=== PATIENT | female | born 1935 | race Caucasian/White ===

== ENCOUNTER 2021-09-19 21:22 | Inpatient (IN) | payer MEDICARE, BC, SELFPAY ==
[2021-09-19 21:45] VITALS: BP 130/62; PULSE 68; RESP 17; TEMP 36.5; O2SAT 97
[2021-09-19 21:54] LABS: Glucose, Whole Blood 101 mg/dL (60-115)
[2021-09-19] MEDS: Atorvastatin Calcium 20 MG TABLET PO (23:10)
[2021-09-19] MEDS: busPIRone HCl 5 MG TABLET PO (23:10)
[2021-09-19] MEDS: metFORMIN HCl 500 MG TABLET PO (23:10)
[2021-09-19 23:25] VITALS: BMI 18.7
--- NOTE | 2021-09-20 04:18 | PC.ADMIT ---
85 year old female patient admitted from [facility] at 2135 with a diagnosis of depression. Pt. was referred by N. This is the patient's first admission to S1. Nurse to nurse done prior to admission. Pt. is on 15 minute safety checks. Pt. signed a CV. Pt. is A&Ox4. She reported experiencing SI prior to admission due to loneliness. Pt. has experienced traumatic events in her life as well as multiple diagnoses of cancer including breast cancer, s/p left mastectomy, and most recently esophageal cancer, s/p surgery. Pt. denies SI on the unit, no plan. Pt. denies AH/VH/HI. Medical history also includes: GERD, hypertension, hyperlipidemia, s/p hysterectomy, COPD. Provider notified and admission orders obtained.
[2021-09-20 06:00] VITALS: BP 156/75; PULSE 67; RESP 16; TEMP 36.6; O2SAT 97
[2021-09-20] MEDS: Levothyroxine Sodium 50 MCG TABLET PO (06:13)
[2021-09-20] MEDS: Omeprazole 20 MG CAPSULE.DR PO ×2 (06:13→15:29)
[2021-09-20 08:30] LABS: Alanine Aminotransferase 15 U/L (0-31); Albumin Level 3.9 g/dL (3.5-5.0); Alkaline Phosphatase 64 U/L (39-117); Anion Gap 13 (12-20); Aspartate Amino Transferase 22 U/L (5-31); Bilirubin Total 0.5 mg/dL (0.0-1.0); Blood Urea Nitrogen 21 mg/dL (9-16); Calcium 9.3 mg/dL (8.4-10.2); Carbon Dioxide 27 mmol/L (22-29); Chloride 102 mmol/L (96-108); Cholesterol 124 mg/dL; Creatinine Clr Calc Pharmacy 24.6; Estimated Glomerular Filt Rate 36; Glucose Fasting 95 mg/dL (60-99); HDL Cholesterol 43 mg/dL; LDL Cholesterol Calculated 63 mg/dl; Potassium 4.8 mmol/L (3.3-5.1); Sodium 137 mmol/L (135-145); Total Protein 5.8 g/dL (6.5-8.0); Triglycerides 91 mg/dL
[2021-09-20] MEDS: metFORMIN HCl 500 MG TABLET PO (08:42)
[2021-09-20] MEDS: Losartan Potassium 25 MG TABLET PO (08:42)
[2021-09-20] MEDS: Sertraline HCL 100 MG TABLET PO (08:42)
[2021-09-20] MEDS: busPIRone HCl 5 MG TABLET PO (08:42)
[2021-09-20 08:51] LABS: Free T4 (Free Thyroxine) 0.95 ng/dL (0.71-1.85); Thyroid Stimulating Hormone 2.72 uIU/mL (0.32-4.0)
[2021-09-20] MEDS: polyethylene glycoL 3350 17 GM POWD.PACK PO (12:35)
--- NOTE | 2021-09-20 13:31 | P.HPPS_ITS ---
HPI Date of Service: 09/20/21 Chief Complaint: depression Sources of Information: patient interviewed, chart reviewed and crisis/core team assessment reviewed HPI Subjective Notes: Watts Warning and Conditional Voluntary Narrative: Mrs. Rouse is a 85 year-old woman with hx of MDD, brought by elliott to [facility] ED due to increase depression, passive suicidal ideation. This is her first inpatient psychiatric admission. Utox is negative. On the unit, Mrs. Ruose reports for the past 3 weeks she has been feeling more anxious, more depressed. She does not want to be on her own (lives in her own apartment). She states anxiety is debilitating to the point that she states I don't want to live like this. She endorses passive suicidal ideation but denies any plan or intent to hurt herself. She reports she has had cancer 3 times. She states she lost about 10 Lbs, recently went back to oncologist and is worried that cancer may have return. She denies hx of VH/AH. She has been on sertraline for several years. no hx of suicide attempts. Past Psychiatric History: Inpatient: none OP: PCP prescribing sertraline, but no OP psych services Past trials: sertraline Suicide attempts: none Medical Evaluation Reviewed: Yes PMFSH Family History: father of suicide Social History: Pt has one daughter and son. of suicide several years ago. Son killed himself while process of divorce and killed his . Substance History: none Trauma History: several tragic losses in her life. Diagnostics Vital Signs (24Hr): Vital Signs - 24 hr 09/19/21 21:45 09/20/21 06:00 Temperature 97.7 F 97.9 F Pulse Rate 68 67 Respiratory Rate 17 16 Blood Pressure 130/62 156/75 H Pulse Oximetry 97 97 Oxygen Delivery Method Room Air Room Air BMI result Body Mass Index 18.7 Labs Results: 09/20/21 15:18 09/20/21 07:14 Labs: Laboratory Results - last 48 hr 09/19/21 09/20/21 21:47 07:14 Sodium 137 Potassium 4.8 Chloride 102 Carbon Dioxide 27 Anion Gap 13 BUN 21 H Creatinine 1.39 Estim Creat Clear Calc 24.6 Estimated GFR 36 POC Glucose 101 Fasting Glucose 95 Calcium 9.3 Total Bilirubin 0.5 AST 22 ALT 15 Alkaline Phosphatase 64 Total Protein 5.8 L Albumin 3.9 Triglycerides 91 Cholesterol 124 LDL Cholesterol, Calc 63 HDL Cholesterol 43 TSH 2.72 Free T4 0.95 Meds/Allergies Meds Home Medications Medication Instructions Recorded Confirmed Type albuterol sulfate 90 mcg/actuation 2 puff inhalation Q6H PRN Wheezing 09/19/21 09/19/21 History aerosol inhaler buspirone 5 mg tablet 5 mg PO TID 09/19/21 09/19/21 History estradiol 1 g vaginal 3XW 09/19/21 09/19/21 History levothyroxine 50 mcg tablet 50 mcg PO DAILY 09/19/21 09/19/21 History losartan 25 mg tablet 25 mg PO DAILY 09/19/21 09/19/21 History metformin 500 mg tablet 500 mg PO BID 09/19/21 09/19/21 History pantoprazole 40 mg tablet,delayed 40 mg PO BID 09/19/21 09/19/21 History release polyethylene glycol 3350 17 gram 17 g PO DAILY 09/19/21 09/19/21 History oral powder packet sertraline 100 mg tablet 100 mg PO DAILY 09/19/21 09/19/21 History simvastatin 20 mg tablet 20 mg PO BEDTIME 09/19/21 09/19/21 History Allergies Allergies Allergy/AdvReac Type Severity Reaction Status Date / Time amoxicillin Allergy Unknown Rash Verified 09/19/21 22:18 naproxen Allergy Unknown Rash Verified 09/19/21 22:18 Mental Status Exam Mental Status Exam Narrative: Appearance: casually groomed, fair hygiene, ambulating with cane, in NAD Behavior:cooperative psychomotor: no agitation or retardation noted Speech:clear, normal rate/rhythm/volume, spontaneous Thought process:linear Thought content: no signs of psychosis, feeling anxious, worried about her health Mood: anxious Affect: congruent SI:passive HI: none VH/AH:none Delusions:none Insight/judgment:fair x 2. Memory/cog: alert, oriented x4, grossly intact but not formally tested. Assessment & Plan Assessment & Plan (1) MDD (major depressive disorder), recurrent episode, severe: Status: Acute Code(s): F33.2 - Major depressive disorder, recurrent severe without psychotic features (2) KEYANA (generalized anxiety disorder): Status: Acute Code(s): F41.1 - Generalized anxiety disorder Plan Mrs. Rouse is an 85 year-old woman with hx of MDD who was brought by daughter to [facility] ED as pt has been presenting with increase anxious mood, not wanting to be on her own, depressed, passive suicidal ideation. Pt has hx of multiple suicides in her family but she has never had suicide attempts nor inpatient psych hospitalizations. She reports being stable on sertraline but thinks may no longer be working. She reports hx of cancer, recent weight loss of more than 10 Lbs and worries that cancer may have return. We discussed risks, benefits and alternative treatment options. She agrees to switch gradually from sertraline to remeron hoping it can also help with sleep and appetite. Low dose ativan for anxiety- monitor excessive sedation, unsteady gait and risk for fall. PLAN 1. Admit to S1, CV 15 minutes checks for safety 2. start remeron 15mg po qhs, ativan 0.25mg po BID 3. lower sertraline to 50mg po daily, may lower further to 25 and then d/c 4. obtain collateral information 5. Aftercare planning. 6. Note that GFR in low 30, pt on metformin. Lactic Acid checked, which is high, hospitalist recommend to stop metformin. Discuss other options for BS control. Patient educated on: diagnosis and medication risk/benefits Informed Consent: understands Reason for continued inpatient stay Substantial Risk for: harm to self
[2021-09-20 15:23] LABS: MANUAL DIFF FLAG NO
[2021-09-20] MEDS: LORazepam 0.5 MG TABLET 0.25 MG PO ×2 (15:29→20:55)
[2021-09-20 15:30] LABS: Basophils Percent Auto 0.1 % (0-2); Eosinophils Percent Auto 0.5 % (0-4); Hematocrit 33.1 % (37.0-47.0); Hemoglobin 10.8 g/dl (12.0-16.0); Imm Gran Abs Auto 0.03 X10*3/uL (0.00-0.03); Imm Gran Pct Auto 0.4 % (0.0-0.4); Lymphocytes Absolute Auto 0.9 X10*3/uL (1.2-4.9); Lymphocytes Percent Auto 11.9 % (20-40); Mean Corpuscular HGB Conc 32.6 g/dl (31.0-35.0); Mean Corpuscular Hemoglobin 30.9 pg (27.0-33.0); Mean Corpuscular Volume 94.8 fL (80.0-98.0); Mean Platelet Volume 10.5 fL (9.4-12.3); Monocytes Absolute Auto 0.7 X10*3/uL (0.1-1.2); Monocytes Percent Auto 8.7 % (2-11); Neutrophils Absolute Auto 5.9 x10*3/uL (2.0-8.3); Neutrophils Percent Auto 78.4 % (45-73); Platelet Count 120 X10*3/uL (160-400); Red Blood Count 3.49 X10*6/uL (4.20-5.50); Red Cell Distribution Width 13.9 % (11.0-16.0); White Blood Count 7.5 X10*3/uL (4.8-10.8)
[2021-09-20 15:45] LABS: Reflex Lactate? Lactic Acid Added
[2021-09-20 16:49] LABS: Glucose, Whole Blood 96 mg/dL (60-115)
[2021-09-20 20:45] VITALS: BP 128/76; PULSE 75; RESP 18; TEMP 37; O2SAT 97
[2021-09-20] MEDS: Mirtazapine 15 MG TABLET PO (20:56)
[2021-09-20] MEDS: Atorvastatin Calcium 20 MG TABLET PO (20:57)
[2021-09-20 22:00] LABS: Glucose, Whole Blood 93 mg/dL (60-115)
[2021-09-21] MEDS: Omeprazole 20 MG CAPSULE.DR PO ×2 (06:28→16:35)
[2021-09-21] MEDS: Levothyroxine Sodium 50 MCG TABLET PO (06:28)
[2021-09-21 07:02] LABS: Estimated Average Glucose 94 mg/dL; Hemoglobin A1c % 4.9 %
[2021-09-21] MEDS: Losartan Potassium 25 MG TABLET PO (08:08)
[2021-09-21] MEDS: Sertraline HCL 50 MG TABLET PO (08:08)
[2021-09-21] MEDS: LORazepam 0.5 MG TABLET 0.25 MG PO ×2 (08:09→20:52)
[2021-09-21] MEDS: polyethylene glycoL 3350 17 GM POWD.PACK PO (08:11)
[2021-09-21 08:12] VITALS: BP 149/70; PULSE 58; RESP 16; TEMP 36.4; O2SAT 96
[2021-09-21 08:25] LABS: Folate 18.5 ng/mL (> or = 4.0); Vitamin B12 585 pg/mL (200-900)
--- NOTE | 2021-09-21 11:02 | P.CNHOSGPS_ITS ---
History of Present Illness Data of Consult Service Date: 09/21/21 Requesting physician: [facility] Psychiatry Primary Care Provider: Unknown Physician HPI Reason for consult: routine medical H+P 85yo F with extensive PMHx admitted [facility] for management of severe depression/anxiety. Notably, she has a history of esophageal CA s/p esophagectomy + partial gastrectomy. She has an esophageal stricture and just underwent EGD with dilation 3 wk ago. Despite this, she has some trouble swallowing solids and is not on a modified diet. She has lost 10 lb over the last 3-4 weeks. She also has a history of breast CA s/p mastectomy and lung CA s/p wedge resection. She gets CT scans for surveillance q3mo and just had CT of the chest, abdomen and pelvis on 07/25/21 without evidence of recurrent disease. She has CAD s/p PCI x2 and COPD but denies chest pain, palpitations, lighthea dedness, edema, shortness of breath, or cough. She does endorse some urinary frequency but no dysuria or hematuria. Lactate on admission here was 4. Metformin was discontinued and A1c was found to be only 4.9. Repeat lactate was 1. Review of Systems Review of Systems: Yes all other systems are reviewed and are negative [facility] Medical History Breast cancer Chronic kidney disease, stage 3 COPD (chronic obstructive pulmonary disease) Coronary artery disease Dyslipidemia Esophageal cancer Essential hypertension History of esophageal dilatation Hypothyroidism Lung cancer Reflux esophagitis Type 2 diabetes mellitus Family History Mother Lung cancer Surgical History History of esophagectomy History of lobectomy of lung History of mastectomy History of partial gastrectomy History of percutaneous coronary intervention Social History Household Members: None Housing: Unknown / Unable to assess Patient Tobacco Use Status: Former Tobacco user Tobacco use type: Cigarette Smoked in Last 30 Days: No Second Hand Smoke Exposure: No Use of substances other than those prescribed or required for medical reasons: No Currently Displaying Signs/Symptoms of Drug Intoxication Withdrawal: No Do you feel safe in your current relationship?: No Current Relationship Spiritual Healthcare Practices: n/a Denominational Healthcare Practices: n/a Cultural Healthcare Practices: n/a Advance Directives: No Advance Directives Information Provided: No Advance Directives on File: No Do you have thoughts of harming others: None Do you have a plan to hurt others: No Plan Recently lost weight without trying: Unsure Patient : No : No Poor oral hygiene: No Meds Allergies Allergy/AdvReac Type Severity Reaction Status Date / Time amoxicillin Allergy Unknown Rash Verified 09/19/21 22:18 naproxen Allergy Unknown Rash Verified 09/19/21 22:18 Active Medications: Current Medications Acetaminophen (Acetaminophen 325 Mg Tablet) 650 mg PO Q6H PRN PRN Reason: Headache/Pain Mild Scale (1-3) Al Hydroxide/Mg Hydroxide (Magnesium Hydrox/Alum Hydrox 30 Ml Oral.Susp) 30 ml PO Q6H PRN PRN Reason: Heartburn/Nausea Albuterol Sulfate (Albuterol Sulfate 90 Mcg 8 Gm Inhaler) 2 puff INHALE Q6H PRN PRN Reason: Wheezing Atorvastatin Calcium (Atorvastatin Calcium 20 Mg Tablet) 20 mg PO BEDTIME [facility] Last Admin: 09/20/21 20:57 Dose: 20 mg Levothyroxine Sodium (Levothyroxine Sodium 50 Mcg Tablet) 50 mcg PO DAILY@0600 [facility] Last Admin: 09/21/21 06:28 Dose: 50 mcg Lorazepam (Lorazepam 0.5 Mg Tablet) 0.25 mg PO BID [facility] Last Admin: 09/21/21 08:09 Dose: 0.25 mg Losartan Potassium (Losartan Potassium 25 Mg Tablet) 25 mg PO DAILY [facility]; Protocol Last Admin: 09/21/21 08:08 Dose: 25 mg Magnesium Hydroxide (Milk Of Magnesia 30 Ml Oral.Susp) 30 ml PO DAILY PRN PRN Reason: Constipation Mirtazapine (Mirtazapine 15 Mg Tablet) 15 mg PO BEDTIME [facility] Last Admin: 09/20/21 20:56 Dose: 15 mg Omeprazole (Omeprazole 20 Mg Capsule.Dr) 20 mg PO BID@0630,1630 [facility] Last Admin: 09/21/21 06:28 Dose: 20 mg Polyethylene Glycol (Polyethylene Glycol 3350 17 Gm Powd.Pack) 17 gm PO DAILY [facility] Last Admin: 09/21/21 08:11 Dose: 17 gm Sertraline HCl (Sertraline Hcl 50 Mg Tablet) 50 mg PO DAILY [facility] Last Admin: 09/21/21 08:08 Dose: 50 mg Trazodone HCl (Trazodone Hcl 50 Mg Tablet) 50 mg PO BEDTIME PRN PRN Reason: Insomnia Home Medications Medication Instructions Recorded Confirmed Last Taken Type albuterol sulfate 90 mcg/actuation 2 puff inhalation Q6H PRN Wheezing 09/19/21 09/19/21 Unknown History aerosol inhaler buspirone 5 mg tablet 5 mg PO TID 09/19/21 09/19/21 Unknown History estradiol 1 g vaginal 3XW 09/19/21 09/19/21 Unknown History levothyroxine 50 mcg tablet 50 mcg PO DAILY 09/19/21 09/19/21 Unknown History losartan 25 mg tablet 25 mg PO DAILY 09/19/21 09/19/21 Unknown History metformin 500 mg tablet 500 mg PO BID 09/19/21 09/19/21 Unknown History pantoprazole 40 mg tablet,delayed 40 mg PO BID 09/19/21 09/19/21 Unknown History release polyethylene glycol 3350 17 gram 17 g PO DAILY 09/19/21 09/19/21 Unknown History oral powder packet sertraline 100 mg tablet 100 mg PO DAILY 09/19/21 09/19/21 Unknown History simvastatin 20 mg tablet 20 mg PO BEDTIME 09/19/21 09/19/21 Unknown History Results Labs CBC and Chem 7: 09/20/21 15:18 09/20/21 07:14 Labs: Laboratory Results - last 24 hr 09/20/21 09/20/21 09/20/21 07:14 13:40 15:18 MCV 94.8 MCH 30.9 MCHC 32.6 RDW 13.9 Plt Count 120 L MPV 10.5 Immature Gran % (Auto) 0.4 Neut % (Auto) 78.4 H Lymph % (Auto) 11.9 L [place] % (Auto) 8.7 Eos % (Auto) 0.5 Baso % (Auto) 0.1 Lymph # (Auto) 0.9 L [place] # (Auto) 0.7 Eos # (Auto) 0.0 Baso # (Auto) 0.0 Abs Immat Gran (auto) 0.03 Absolute Neuts (auto) 5.9 Absolute Nucleated RBC 0.000 Nucleated RBC % (auto) 0.0 POC Glucose Estimat Average Glucose Hemoglobin A1c % Lactic Acid 4.0 H* Lactic Acid F/U @ 2Hr Vitamin B12 585 Folate 18.5 09/20/21 09/20/21 09/20/21 15:18 15:59 16:45 MCV MCH MCHC RDW Plt Count MPV Immature Gran % (Auto) Neut % (Auto) Lymph % (Auto) [place] % (Auto) Eos % (Auto) Baso % (Auto) Lymph # (Auto) [place] # (Auto) Eos # (Auto) Baso # (Auto) Abs Immat Gran (auto) Absolute Neuts (auto) Absolute Nucleated RBC Nucleated RBC % (auto) POC Glucose 96 Estimat Average Glucose 94 Hemoglobin A1c % 4.9 Lactic Acid Lactic Acid F/U @ 2Hr 1.0 Vitamin B12 Folate 09/20/21 20:51 MCV MCH MCHC RDW Plt Count MPV Immature Gran % (Auto) Neut % (Auto) Lymph % (Auto) [place] % (Auto) Eos % (Auto) Baso % (Auto) Lymph # (Auto) [place] # (Auto) Eos # (Auto) Baso # (Auto) Abs Immat Gran (auto) Absolute Neuts (auto) Absolute Nucleated RBC Nucleated RBC % (auto) POC Glucose 93 Estimat Average Glucose Hemoglobin A1c % Lactic Acid Lactic Acid F/U @ 2Hr Vitamin B12 Folate Assessment and Plan (1) Dysphagia: Status: Acute Plan 85yo F with hx CAD s/p PCI x2, HLD, HTN, COPD, CKD3, lung CA s/p resection, L breast CA s/p mastectomy, esophageal CA s/p esophagectomy + partial gastrectomy, reflux esophagitis, esophageal stricture s/p dilation 3 wk ago, admitted to [facility] for management of depression and anxiety. # lactic acidosis # DM2 - likely MTF effect and in any case, with A1c 4.9, not needed anymore; agree w ith discontinuation # dysphagia # reflux esophagitis - CAR SHIFTER consultation - continue PPI # weight loss - nutrition consultation, supplements, continue mirtazapine # urinary frequency - check UA micro/reflex culture # CKD3/4 - SCr stable, was 1.35 on 07/25/21 - continue losartan # CAD s/p PCI # HLD - continue statin # HTN - continue losartan # COPD - prn albuterol # hypothyroidism - continue LT4 Thank you for this consultation. We are signing off the case at this time. Please communicate with us if any new medical questions arise. Physical Exam Vital Signs: Last Vital Signs Temp 97.5 F 09/21/21 08:12 Pulse 58 09/21/21 08:12 Resp 16 09/21/21 08:12 BP 149/70 H 09/21/21 08:12 Pulse Ox 96 09/21/21 08:12 O2 Del Method 09/21/21 08:12 BMI result Body Mass Index 18.7 Gen: in no acute distress HEENT: sclera anicteric, moist mucus membranes Neck: supple Lungs: clear to auscultation bilaterally Heart: regular rate and rhythm, no murmurs Abd: soft, non-tender, non-distended Ext: no edema Skin: warm/well-perfused Neuro: alert and oriented x3, no focal findings Psych: appropriate affect Neuro Cranial nerves: Yes CN's II-XII intact bilaterally
--- NOTE | 2021-09-21 15:05 | P.PNPSI_ITS ---
Subjective Subjective Date of Service: 09/21/21 Reason For Visit: depression Subjective Notes: Conditional Voluntary Interim History: the nursing staff reported the patient has been pleasant and cooperative, fully compliant with treatment. On interview the patient reports that she felt over-sedated with the start of Remeron, she has slept for nearly 8 hours in a row. We check her blood work and so far it is normal. Mental Status Exam Mental Status Exam Patient Appearance: Well Grooomed Patient Orientation: Person and Situation Level of Consciousness: Awake Patient Behavior: Cooperative Mood Description: Withdrawn Affect Description: Constricted Patient Cognition Impaired: No Ability to Follow Directions: Good Speech Pattern: Clear Hallucinations: None Delusions: Not Present Thought Process: Distracted and Linear Thought Content: positive for Circumstantial Judgement: Fair Diagnostics Vital Signs (24Hr): Vital Signs - 24 hr 09/20/21 20:45 09/21/21 08:12 Temperature 98.6 F 97.5 F Pulse Rate 75 58 Respiratory Rate 18 16 Blood Pressure 128/76 149/70 H Pulse Oximetry 97 96 Oxygen Delivery Method Room Air Room Air BMI result Body Mass Index 18.7 Labs Results: 09/20/21 15:18 09/20/21 07:14 Labs: Laboratory Results - last 48 hr 09/19/21 09/20/21 09/20/21 21:47 07:14 07:14 WBC RBC Hgb Hct MCV MCH MCHC RDW Plt Count MPV Immature Gran % (Auto) Neut % (Auto) Lymph % (Auto) [place] % (Auto) Eos % (Auto) Baso % (Auto) Lymph # (Auto) [place] # (Auto) Eos # (Auto) Baso # (Auto) Abs Immat Gran (auto) Absolute Neuts (auto) Absolute Nucleated RBC Nucleated RBC % (auto) Sodium 137 Potassium 4.8 Chloride 102 Carbon Dioxide 27 Anion Gap 13 BUN 21 H Creatinine 1.39 Estim Creat Clear Calc 24.6 Estimated GFR 36 POC Glucose 101 Fasting Glucose 95 Estimat Average Glucose Hemoglobin A1c % Lactic Acid Lactic Acid F/U @ 2Hr Calcium 9.3 Total Bilirubin 0.5 AST 22 ALT 15 Alkaline Phosphatase 64 Total Protein 5.8 L Albumin 3.9 Triglycerides 91 Cholesterol 124 LDL Cholesterol, Calc 63 HDL Cholesterol 43 Vitamin B12 585 Folate 18.5 TSH 2.72 Free T4 0.95 09/20/21 09/20/21 09/20/21 13:40 15:18 15:18 WBC 7.5 RBC 3.49 L Hgb 10.8 L Hct 33.1 L MCV 94.8 MCH 30.9 MCHC 32.6 RDW 13.9 Plt Count 120 L MPV 10.5 Immature Gran % (Auto) 0.4 Neut % (Auto) 78.4 H Lymph % (Auto) 11.9 L [place] % (Auto) 8.7 Eos % (Auto) 0.5 Baso % (Auto) 0.1 Lymph # (Auto) 0.9 L [place] # (Auto) 0.7 Eos # (Auto) 0.0 Baso # (Auto) 0.0 Abs Immat Gran (auto) 0.03 Absolute Neuts (auto) 5.9 Absolute Nucleated RBC 0.000 Nucleated RBC % (auto) 0.0 Sodium Potassium Chloride Carbon Dioxide Anion Gap BUN Creatinine Estim Creat Clear Calc Estimated GFR POC Glucose Fasting Glucose Estimat Average Glucose 94 Hemoglobin A1c % 4.9 Lactic Acid 4.0 H* Lactic Acid F/U @ 2Hr Calcium Total Bilirubin AST ALT Alkaline Phosphatase Total Protein Albumin Triglycerides Cholesterol LDL Cholesterol, Calc HDL Cholesterol Vitamin B12 Folate TSH Free T4 09/20/21 09/20/21 09/20/21 15:59 16:45 20:51 WBC RBC Hgb Hct MCV MCH MCHC RDW Plt Count MPV Immature Gran % (Auto) Neut % (Auto) Lymph % (Auto) [place] % (Auto) Eos % (Auto) Baso % (Auto) Lymph # (Auto) [place] # (Auto) Eos # (Auto) Baso # (Auto) Abs Immat Gran (auto) Absolute Neuts (auto) Absolute Nucleated RBC Nucleated RBC % (auto) Sodium Potassium Chloride Carbon Dioxide Anion Gap BUN Creatinine Estim Creat Clear Calc Estimated GFR POC Glucose 96 93 Fasting Glucose Estimat Average Glucose Hemoglobin A1c % Lactic Acid Lactic Acid F/U @ 2Hr 1.0 Calcium Total Bilirubin AST ALT Alkaline Phosphatase Total Protein Albumin Triglycerides Cholesterol LDL Cholesterol, Calc HDL Cholesterol Vitamin B12 Folate TSH Free T4 Medications Medications Current Medications Acetaminophen (Acetaminophen 325 Mg Tablet) 650 mg PO Q6H PRN PRN Reason: Headache/Pain Mild Scale (1-3) Al Hydroxide/Mg Hydroxide (Magnesium Hydrox/Alum Hydrox 30 Ml Oral.Susp) 30 ml PO Q6H PRN PRN Reason: Heartburn/Nausea Albuterol Sulfate (Albuterol Sulfate 90 Mcg 8 Gm Inhaler) 2 puff INHALE Q6H PRN PRN Reason: Wheezing Atorvastatin Calcium (Atorvastatin Calcium 20 Mg Tablet) 20 mg PO BEDTIME [facility] Last Admin: 09/20/21 20:57 Dose: 20 mg Levothyroxine Sodium (Levothyroxine Sodium 50 Mcg Tablet) 50 mcg PO DAILY@0600 [facility] Last Admin: 09/21/21 06:28 Dose: 50 mcg Lorazepam (Lorazepam 0.5 Mg Tablet) 0.25 mg PO BID [facility] Last Admin: 09/21/21 08:09 Dose: 0.25 mg Losartan Potassium (Losartan Potassium 25 Mg Tablet) 25 mg PO DAILY [facility]; Prot ocol Last Admin: 09/21/21 08:08 Dose: 25 mg Magnesium Hydroxide (Milk Of Magnesia 30 Ml Oral.Susp) 30 ml PO DAILY PRN PRN Reason: Constipation Mirtazapine (Mirtazapine 15 Mg Tablet) 15 mg PO BEDTIME [facility] Last Admin: 09/20/21 20:56 Dose: 15 mg Omeprazole (Omeprazole 20 Mg Capsule.Dr) 20 mg PO BID@0630,1630 [facility] Last Admin: 09/21/21 06:28 Dose: 20 mg Polyethylene Glycol (Polyethylene Glycol 3350 17 Gm Powd.Pack) 17 gm PO DAILY [facility] Last Admin: 09/21/21 08:11 Dose: 17 gm Sertraline HCl (Sertraline Hcl 50 Mg Tablet) 50 mg PO DAILY [facility] Last Admin: 09/21/21 08:08 Dose: 50 mg Trazodone HCl (Trazodone Hcl 50 Mg Tablet) 50 mg PO BEDTIME PRN PRN Reason: Insomnia Allergies Allergies Allergy/AdvReac Type Severity Reaction Status Date / Time amoxicillin Allergy Unknown Rash Verified 09/19/21 22:18 naproxen Allergy Unknown Rash Verified 09/19/21 22:18 Assessment & Plan Assessment & Plan (1) Dysphagia: Status: Acute Code(s): R13.10 - Dysphagia, unspecified Plan 85yo F with hx CAD s/p PCI x2, HLD, HTN, COPD, CKD3, lung CA s/p resection, L breast CA s/p mastectomy, esophageal CA s/p esophagectomy + partial gastrectomy, reflux esophagitis, esophageal stricture s/p dilation 3 wk ago, admitted [facility] for management of depression and anxiety. # lactic acidosis # DM2 - likely MTF effect and in any case, with A1c 4.9, not needed anymore; agree with discontinuation # dysphagia # reflux esophagitis - HOUSING CASE MANAGER consultation - continue PPI # weight loss - nutrition consultation, supplements, continue mirtazapine # urinary frequency - check UA micro/reflex culture # CKD3/4 - SCr stable, was 1.35 on 07/25/21 - continue losartan # CAD s/p PCI # HLD - continue statin # HTN - continue losartan # COPD - prn albuterol # hypothyroidism - continue LT4 Thank you for this consultation. We are signing off the case at this time. Please communicate with us if any new medical questions arise. I spent ___20___ minutes with the patient and/or on the patient floor today, greater than?50% of which was spent counseling/coordinating care. Reason for contiued inpatient stay Substantial Risk for: inability to function, rapid decompensation and med/psych decompensation
--- NOTE | 2021-09-21 15:35 | MHC.SL.SWA ---
Speech Pathologist Impression: Pharyngoesophageal dysphagia Hx esophagectomy/partial gastrectomy with reflux esophagitis Patient had esophageal dilation 3 weeks ago Risk of Aspiration Due to: Medically Fragile Dysphasia Diet Status: No Change Liquid Consistency and Strategies for Safe Swallow: Liquid Intake Recommendation: Thin Liquid Intake Strategies: Small Sips Solid Food Consistency: Dietary Recommendations: Regular Additional Modifications to Solid Foods: Pills whole w/ liquid or puree per pt tolerance. DIRECTOR CONSTRUCTION SERVICES to f/u 1x time. Oral Medication Intake: Whole with Puree Please contact the pharmacy regarding appropriate crushable or liquid drug formulations that are available whenever modified delivery is recommended. Compensatory Strategies and Precautions to be Taken for Safe Swallow: Sitting Upright (90 deg) Small Bites and Sips Alternate Liquids/Solids Rate of Ingestion Change Avoid Specific Foods Supervision While Eating and Drinking for Safe Swallow: None Needed Foods to Avoid: Avoid tough solids, difficult to chew foods Recommendation for Speech: Inpatient Speech Therapy Comment: 1 f/u Frequency/Duration: Date Range for Service Req: Timeline to reassess: Applications Support Lead Clinican/Clinical Fellow: No Supervisory Statement: I have reviewed and agree with the student/clinical fellow's documentation: N/A Speech Language Pathologist: Sapphire Sainz M.A., CCC-DIRECTOR CONSTRUCTION SERVICES
--- NOTE | 2021-09-21 15:48 | MHC.CLN ---
NUTRITION CONSULT FOR RECENT 10# WEIGHT LOSS. PATIENT REPORTS NAUSEA AT TIME OF VISIT. WOULD LIKE 1.5 ENSURES PER DAY. EXPLAINED THAT SUPPLEMENT COMES IN BOTTLE AND PATIENT AGREED TO ENSURE BID. SUPPLEMENT PROVIDES ADDITIONAL 700 KCALS, 40 G PROTEIN. PRIOR HISTORY OF LUNG AND ESOPHAGEAL CANCERS. SEEN BY PLAN CHECKER TODAY AND OK FOR UNMODIFIED DIET. PATIENT APPEARS WELL NOURISHED. FOLLOW FOR PLAN CHECKER RECS AND INTAKE.
[2021-09-21 15:55] VITALS: BMI 18.7
[2021-09-21 16:46] LABS: Glucose, Whole Blood 82 mg/dL (60-115)
[2021-09-21 16:46] LABS: Glucose, Whole Blood 83 mg/dL (60-115)
[2021-09-21 18:00] VITALS: BP 143/64; PULSE 91; RESP 19; TEMP 36.1; O2SAT 97
[2021-09-21] MEDS: Atorvastatin Calcium 20 MG TABLET PO (20:52)
[2021-09-21] MEDS: Mirtazapine 15 MG TABLET PO (20:55)
[2021-09-21] MEDS: Magnesium Hydrox/Alum Hydrox 30 ML ORAL.SUSP PO (20:57)
[2021-09-21 21:24] LABS: Glucose, Whole Blood 198 mg/dL (60-115)
[2021-09-21 21:33] LABS: Appearance Urine CLEAR; Color Urine YELLOW; Glucose Urine UA NEG (NEG); Leukocyte Esterase Urine 1+ (NEG); Nitrite Urine NEG (NEG); PH 5.5 (5.0-8.0); UACC Culture Trigger YES; Urine Blood NEG (NEG); Urine Ketones NEG (NEG); Urine Protein NEG (NEG-TRACE)
[2021-09-21 21:44] LABS: Bacteria Urine TRACE /LPF; Squamous Epithelial Cell Urine TRACE /LPF
[2021-09-21 21:45] LABS: RBC Urine 0-2 /HPF (0); UACC CULT YES
[2021-09-22] MEDS: Levothyroxine Sodium 50 MCG TABLET PO (06:39)
[2021-09-22] MEDS: Omeprazole 20 MG CAPSULE.DR PO ×2 (06:39→16:13)
[2021-09-22 07:40] VITALS: BP 151/70; PULSE 56; RESP 16; TEMP 35.6; O2SAT 98
[2021-09-22 07:42] LABS: Glucose, Whole Blood 75 mg/dL (60-115)
[2021-09-22] MEDS: Sertraline HCL 50 MG TABLET PO (08:22)
[2021-09-22] MEDS: Losartan Potassium 25 MG TABLET PO (08:22)
[2021-09-22] MEDS: LORazepam 0.5 MG TABLET 0.25 MG PO ×2 (08:23→19:57)
[2021-09-22] MEDS: polyethylene glycoL 3350 17 GM POWD.PACK PO (08:24)
--- NOTE | 2021-09-22 11:22 | PC.NURSE ---
Message sent to Dr Hernandez via [employer] questioning if Metformin needs to be restarted. POC blood sugars WNL, except for hs last night. Pt states she ate ice cream prior to blood sugar taken last night. Information received that pt does not need restart of Metformin, Hgb a1c 4.9. Dr Hernandez questioned whether qid blood sugars could be d/c'd or if monitoring was necessary. Information received by Dr Hernandez that blood sugars could be d/c'd. Dr Smart notified and will d/c. Pt informed of all information received.
--- NOTE | 2021-09-22 13:42 | MHC.SL.SWA ---
Speech Pathologist Impression: Risk of Aspiration Due to: Medically Fragile Dysphasia Diet Status: Continue REGULAR diet with THIN liquids, pills WHOLE w/ puree or as preferred by patient. Liquid Consistency and Strategies for Safe Swallow: Liquid Intake Recommendation: Thin Liquid Intake Strategies: Unrestricted Solid Food Consistency: Dietary Recommendations: Regular Additional Modifications to Solid Foods: Pt enjoys independence of selecting meals, demonstrates good insight in to foods that she is able to manage best. Oral Medication Intake: Whole with Puree Please contact the pharmacy regarding appropriate crushable or liquid drug formulations that are available whenever modified delivery is recommended. Compensatory Strategies and Precautions to be Taken for Safe Swallow: Sitting Upright (90 deg) Liquids from Wide Cup Alternate Liquids/Solids Supervision While Eating and Drinking for Safe Swallow: None Needed Foods to Avoid: Avoid tough solids, difficult to chew foods Swallowing Recommended Treatments: Recommendation for Speech: Inpatient Speech Therapy: Pt was seen early p.m. but after lunch had been completed. Pt reported that she was much more satisfied with the past two meals because she was allowed to select what she wanted to eat, and only what she wanted and needed was on tray. C/O too much food coming previously and that she was upset with the waste that caused. Pt additionally reported that she is only eating what she considers consistencies she can tolerate, and gave the example of avoiding the crust on her toast this morning. Pt stated that she had no difficulties with eating over the past few meals and no sensation of globus after swallowing. Pt is tolerating current diet of REGULAR meals with THIN liquids without c/o swallowing difficulty, recommend Patient continue with selecting preferred foods in the amount desired. No further DRYING MACHINE BACK TENDER services needed at this time, please re-consult if any additional concerns arise during hospital stay. Comment: Hx esophagectomy/partial gastrectomy with reflux esophagitis Patient had esophageal dilation 3 weeks ago Frequency/Duration: Date Range for Service Req: Timeline to reassess: Brim Pouncer Machine Operator Clinican/Clinical Fellow: No Supervisory Statement: I have reviewed and agree with the student/clinical fellow's documentation: N/A Speech Language Pathologist: Joleen Romero M.A., [facility]-DRYING MACHINE BACK TENDER
[2021-09-22 18:00] VITALS: BP 99/58; PULSE 83; RESP 17; TEMP 36; O2SAT 96
[2021-09-22] MEDS: Mirtazapine 7.5 MG TABLET PO (19:58)
[2021-09-22] MEDS: Atorvastatin Calcium 20 MG TABLET PO (19:58)
[2021-09-23] MEDS: Omeprazole 20 MG CAPSULE.DR PO ×2 (06:45→16:14)
[2021-09-23] MEDS: Levothyroxine Sodium 50 MCG TABLET PO (06:45)
[2021-09-23 08:42] VITALS: BP 145/65; PULSE 60; RESP 16; TEMP 35.8; O2SAT 98
[2021-09-23] MEDS: LORazepam 0.5 MG TABLET 0.25 MG PO ×2 (08:46→20:43)
[2021-09-23] MEDS: Losartan Potassium 25 MG TABLET PO (08:46)
[2021-09-23] MEDS: Sertraline HCL 50 MG TABLET PO (08:46)
--- NOTE | 2021-09-23 10:55 | MHC.CLN ---
F/U CONTINUES WITH REGULAR DIET AND ENSURE BID. SEEN BY POTTER OR CERAMIC ARTIST AND REPORTS THAT PATIENT IS MAKING OWN FOOD CHOICES AND SELECTING FOODS SHE CAN EAT. APPEARS TO BE EATING WELL/TOLERATING DIET. A1C=4.9 SHOWING EXCELLENT BLOOD SUGAR CONTROL. BLOOD GLUCOSE MONITORING DISCONTINUED PER MD. NO NEW NUTRITION INTERVENTIONS. RD TO FOLLOW WEEKLY.
--- NOTE | 2021-09-23 16:58 | HO.PSYCHPN ---
Subjective Subjective Date of Service: 09/23/21 Reason For Visit: depression Subjective Notes: Conditional Voluntary Interim History: the patient reported over-sedation weight Remeron 15 mg p.o. q.h.s. so we lowered last night to 7.5. On interview the patient still slightly sedated in the morning with unstable gait. Today we had a family meeting with her daughter and several questions regarding disposition and aftercare were discussed. The patient stated that she feels safe in this facility. Mental Status Exam Mental Status Exam Patient Appearance: Well Grooomed Patient Orientation: Person and Situation Level of Consciousness: Awake Patient Behavior: Cooperative Mood Description: Withdrawn Affect Description: Constricted Patient Cognition Impaired: No Ability to Follow Directions: Good Speech Pattern: Clear Memory Description: Intact Hallucinations: None Delusions: Not Present Thought Process: Linear Thought Content: positive for Circumstantial Judgement: Fair Diagnostics Vital Signs (24Hr): Vital Signs - 24 hr 09/22/21 18:00 09/23/21 08:42 Temperature 96.8 F 96.5 F L Pulse Rate 83 60 Respiratory Rate 17 16 Blood Pressure 99/58 L 145/65 H Pulse Oximetry 96 98 Oxygen Delivery Method Room Air Room Air BMI result Body Mass Index 18.7 Labs Results: 09/20/21 15:18 09/20/21 07:14 Labs: Laboratory Results - last 48 hr 09/21/21 09/21/21 09/22/21 19:50 21:02 07:37 POC Glucose 198 H 75 Urine Color YELLOW Urine Appearance CLEAR Urine pH 5.5 Ur Specific [place] 1.010 Urine Protein NEG Urine Glucose (UA) NEG Urine Ketones NEG Urine Blood NEG Urine Nitrite NEG Ur Leukocyte Esterase 1+ H Urine RBC 0-2 Urine WBC 1-4 Ur Squamous Epith Cells TRACE Urine Bacteria TRACE Medications Medications Current Medications Acetaminophen (Acetaminophen 325 Mg Tablet) 650 mg PO Q6H PRN PRN Reason: Headache/Pain Mild Scale (1-3) Al Hydroxide/Mg Hydroxide (Magnesium Hydrox/Alum Hydrox 30 Ml Oral.Susp) 30 ml PO Q6H PRN PRN Reason: Heartburn/Nausea Last Admin: 09/21/21 20:57 Dose: 30 ml Albuterol Sulfate (Albuterol Sulfate 90 Mcg 8 Gm Inhaler) 2 puff INHALE Q6H PRN PRN Reason: Wheezing Atorvastatin Calcium (Atorvastatin Calcium 20 Mg Tablet) 20 mg PO BEDTIME [facility] Last Admin: 09/22/21 19:58 Dose: 20 mg Levothyroxine Sodium (Levothyroxine Sodium 50 Mcg Tablet) 50 mcg PO DAILY@0600 [facility] Last Admin: 09/23/21 06:45 Dose: 50 mcg Lorazepam (Lorazepam 0.5 Mg Tablet) 0.25 mg PO BID [facility] Last Admin: 09/23/21 08:46 Dose: 0.25 mg Losartan Potassium (Losartan Potassium 25 Mg Tablet) 25 mg PO DAILY [facility]; Protocol Last Admin: 09/23/21 08:46 Dose: 25 mg Magnesium Hydroxide (Milk Of Magnesia 30 Ml Oral.Susp) 30 ml PO DAILY PRN PRN Reason: Constipation Mirtazapine (Mirtazapine 7.5 Mg Tablet) 7.5 mg PO BEDTIME [facility] Last Admin: 09/22/21 19:58 Dose: 7.5 mg Omeprazole (Omeprazole 20 Mg Capsule.Dr) 20 mg PO BID@0630,1630 [facility] Last Admin: 09/23/21 16:14 Dose: 20 mg Polyethylene Glycol (Polyethylene Glycol 3350 17 Gm Powd.Pack) 17 gm PO DAILY [facility] Last Admin: 09/23/21 08:47 Dose: Not Given Sertraline HCl (Sertraline Hcl 50 Mg Tablet) 50 mg PO DAILY [facility] Last Admin: 09/23/21 08:46 Dose: 50 mg Trazodone HCl (Trazodone Hcl 50 Mg Tablet) 50 mg PO BEDTIME PRN PRN Reason: Insomnia Allergies Allergies Allergy/AdvReac Type Severity Reaction Status Date / Time amoxicillin Allergy Unknown Rash Verified 09/19/21 22:18 naproxen Allergy Unknown Rash Verified 09/19/21 22:18 Assessment & Plan Assessment & Plan (1) MDD (major depressive disorder), recurrent episode, severe: Status: Acute Code(s): F33.2 - Major depressive disorder, recurrent severe without psychotic features Plan Elderly female with a history of major depressive disorder admitted for exacerbation of symptoms in the context of several psychosocial stressors. On admission, she verbalized suicidal ideation. At this moment she is safe and she is able to contract for safety. Plan 1. Continue Remeron 7.5. 2. Keep saw loved on 50 mg p.o. daily. 3. Reassessment with results. I spent __45____ minutes with the patient and/or on the patient floor today, greater than?50% of which was spent counseling/coordinating care. Reason for contiued inpatient stay Substantial Risk for: inability to function, rapid decompensation and med/psych decompensation
[2021-09-23] MEDS: Mirtazapine 7.5 MG TABLET PO (20:43)
[2021-09-23] MEDS: Atorvastatin Calcium 20 MG TABLET PO (20:43)
[2021-09-23 20:45] VITALS: BP 114/62; PULSE 65; RESP 16; TEMP 36; O2SAT 97
[2021-09-23] MEDS: Acetaminophen 325 MG TABLET 650 MG PO (20:58)
[2021-09-24] MEDS: Omeprazole 20 MG CAPSULE.DR PO ×2 (06:33→16:14)
[2021-09-24] MEDS: Levothyroxine Sodium 50 MCG TABLET PO (06:33)
[2021-09-24 07:00] VITALS: BMI 19.3
[2021-09-24 07:30] VITALS: BP 149/70; PULSE 60; RESP 18; TEMP 36.1; O2SAT 96
[2021-09-24] MEDS: polyethylene glycoL 3350 17 GM POWD.PACK PO (08:22)
[2021-09-24] MEDS: LORazepam 0.5 MG TABLET 0.25 MG PO ×2 (08:26→21:13)
[2021-09-24] MEDS: Sertraline HCL 50 MG TABLET PO (08:26)
[2021-09-24] MEDS: Losartan Potassium 25 MG TABLET PO (08:27)
--- NOTE | 2021-09-24 15:27 | P.PNPSI_ITS ---
Subjective Subjective Date of Service: 09/24/21 Reason For Visit: depression Subjective Notes: Conditional Voluntary Interim History: the nursing staff reported the patient has been fully compliant with treatment, she reported pain that it was relieved with Tylenol. On interview, the patient reports that she has some abdominal cramps after meals. We discussed options and she agreed to try scopolamine p.r.n.. So far, her over-sedation improve with the lowering of Remeron. Mental Status Exam Mental Status Exam Patient Appearance: Well Grooomed Patient Orientation: Person and Situation Level of Consciousness: Alert Patient Behavior: Cooperative Mood Description: Constricted Affect Description: Constricted Patient Cognition Impaired: No Ability to Follow Directions: Good Speech Pattern: Clear Hallucinations: None Delusions: Not Present Thought Process: Linear Thought Content: positive for Circumstantial Judgement: Fair Diagnostics Vital Signs (24Hr): Vital Signs - 24 hr 09/23/21 20:45 09/24/21 07:30 Temperature 96.8 F 96.9 F Pulse Rate 65 60 Respiratory Rate 16 18 Blood Pressure 114/62 149/70 H Pulse Oximetry 97 96 Oxygen Delivery Method Room Air Room Air BMI result Body Mass Index 19.3 Labs Results: 09/20/21 15:18 09/20/21 07:14 Medications Medications Current Medications Acetaminophen (Acetaminophen 325 Mg Tablet) 650 mg PO Q6H PRN PRN Reason: Headache/Pain Mild Scale (1-3) Last Admin: 09/23/21 20:58 Dose: 650 mg Al Hydroxide/Mg Hydroxide (Magnesium Hydrox/Alum Hydrox 30 Ml Oral.Susp) 30 ml PO Q6H PRN PRN Reason: Heartburn/Nausea Last Admin: 09/21/21 20:57 Dose: 30 ml Albuterol Sulfate (Albuterol Sulfate 90 Mcg 8 Gm Inhaler) 2 puff INHALE Q6H PRN PRN Reason: Wheezing Atorvastatin Calcium (Atorvastatin Calcium 20 Mg Tablet) 20 mg PO BEDTIME [facility] Last Admin: 09/23/21 20:43 Dose: 20 mg Levothyroxine Sodium (Levothyroxine Sodium 50 Mcg Tablet) 50 mcg PO DAILY@0600 [facility] Last Admin: 09/24/21 06:33 Dose: 50 mcg Lorazepam (Lorazepam 0.5 Mg Tablet) 0.25 mg PO BID [facility] Last Admin: 09/24/21 08:26 Dose: 0.25 mg Losartan Potassium (Losartan Potassium 25 Mg Tablet) 25 mg PO DAILY [facility]; Protocol Last Admin: 09/24/21 08:27 Dose: 25 mg Magnesium Hydroxide (Milk Of Magnesia 30 Ml Oral.Susp) 30 ml PO DAILY PRN PRN Reason: Constipation Mirtazapine (Mirtazapine 7.5 Mg Tablet) 7.5 mg PO BEDTIME [facility] Last Admin: 09/23/21 20:43 Dose: 7.5 mg Omeprazole (Omeprazole 20 Mg Capsule.Dr) 20 mg PO BID@0630,1630 [facility] Last Admin: 09/24/21 06:33 Dose: 20 mg Polyethylene Glycol (Polyethylene Glycol 3350 17 Gm Powd.Pack) 17 gm PO DAILY [facility] Last Admin: 09/24/21 08:22 Dose: 17 gm Sertraline HCl (Sertraline Hcl 50 Mg Tablet) 50 mg PO DAILY [facility] Last Admin: 09/24/21 08:26 Dose: 50 mg Trazodone HCl (Trazodone Hcl 50 Mg Tablet) 50 mg PO BEDTIME PRN PRN Reason: Insomnia Allergies Allergies Allergy/AdvReac Type Severity Reaction Status Date / Time amoxicillin Allergy Unknown Rash Verified 09/19/21 22:18 naproxen Allergy Unknown Rash Verified 09/19/21 22:18 Assessment & Plan Assessment & Plan (1) MDD (major depressive disorder), recurrent episode, severe: Status: Acute Code(s): F33.2 - Major depressive disorder, recurrent severe without psychotic features Plan Elderly female with a history of major depressive disorder admitted for exacerbation of symptoms in the context of several psychosocial stressors. On admission, she verbalized suicidal ideation. At this moment she is safe and she is able to contract for safety. Plan 1. Continue Remeron 7.5. 2. Keep saw loved on 50 mg p.o. daily. 3. Reassessment with results. I spent ___20___ minutes with the patient and/or on the patient floor today, greater than?50% of which was spent counseling/coordinating care. Reason for contiued inpatient stay Substantial Risk for: harm to self, inability to function, rapid decompensation and med/psych decompensation
[2021-09-24 18:00] VITALS: BP 119/64; PULSE 70; RESP 19; TEMP 36.1; O2SAT 97
[2021-09-24] MEDS: Mirtazapine 7.5 MG TABLET PO (21:12)
[2021-09-24] MEDS: Atorvastatin Calcium 20 MG TABLET PO (21:12)
[2021-09-25 06:00] VITALS: BP 148/70; PULSE 65; RESP 17; TEMP 36.2; O2SAT 98
[2021-09-25] MEDS: Omeprazole 20 MG CAPSULE.DR PO ×2 (06:27→16:52)
[2021-09-25] MEDS: Levothyroxine Sodium 50 MCG TABLET PO (06:27)
[2021-09-25] MEDS: Sertraline HCL 50 MG TABLET PO (08:55)
[2021-09-25] MEDS: Losartan Potassium 25 MG TABLET PO (08:55)
[2021-09-25] MEDS: LORazepam 0.5 MG TABLET 0.25 MG PO (08:58)
[2021-09-25 18:00] VITALS: BP 137/67; PULSE 65; RESP 19; TEMP 36.5; O2SAT 97
[2021-09-25] MEDS: Atorvastatin Calcium 20 MG TABLET PO (20:37)
[2021-09-25] MEDS: Mirtazapine 7.5 MG TABLET PO (20:37)
[2021-09-26] MEDS: Levothyroxine Sodium 50 MCG TABLET PO (06:33)
[2021-09-26] MEDS: Omeprazole 20 MG CAPSULE.DR PO ×2 (06:33→16:36)
[2021-09-26 08:00] VITALS: BP 167/77; PULSE 60; RESP 16; TEMP 35.8; O2SAT 98
[2021-09-26] MEDS: Losartan Potassium 25 MG TABLET PO (08:12)
[2021-09-26] MEDS: Sertraline HCL 50 MG TABLET PO (08:12)
[2021-09-26] MEDS: polyethylene glycoL 3350 17 GM POWD.PACK PO (08:12)
[2021-09-26] MEDS: LORazepam 0.5 MG TABLET 0.25 MG PO ×2 (10:14→20:27)
--- NOTE | 2021-09-26 17:59 | HO.PSYCHPN ---
Subjective Subjective Date of Service: 09/26/21 Reason For Visit: depression Interim History: met with patient and discussed with Nursing. Plan for discharge after the weekend. Reports feeling much better now regarding level of depression. No suicidal thoughts. sleep okay. Energy and appetite okay. No medication concerns. Feeling supported by family and talked about her children and also her great granddaughter who visited. Still reports that she feels alone and knows this will be this scenario when she is discharged. We did discuss this at length and highlighted the amount of support that she has and perhaps allowing family to help more, rather than assuming they cannot could be beneficial. We did discuss that they would likely be more willing to help out and be less burdened and contrasted that with her being in the hospital and potential impact on family Medication Compliance: Yes Side effects from medications: No Attending Groups: Yes Review of Systems Acute medical concerns: No Review of Systems Review of Systems Unremarkable Mental Status Exam Mental Status Exam Narrative: pleasant and engaged. Organized. Good self-care. Less depressed. No SI. No HI. No agitation or psychosis. Insight and judgment good Diagnostics Vital Signs (24Hr): Vital Signs - 24 hr 09/25/21 18:00 09/26/21 08:00 Temperature 97.7 F 96.5 F L Pulse Rate 65 60 Respiratory Rate 19 16 Blood Pressure 137/67 167/77 H Pulse Oximetry 97 98 Oxygen Delivery Method Room Air Room Air BMI result Body Mass Index 19.3 Labs Results: 09/20/21 15:18 09/20/21 07:14 Medications Medications Current Medications Acetaminophen (Acetaminophen 325 Mg Tablet) 650 mg PO Q6H PRN PRN Reason: Headache/Pain Mild Scale (1-3) Last Admin: 09/23/21 20:58 Dose: 650 mg Al Hydroxide/Mg Hydroxide (Magnesium Hydrox/Alum Hydrox 30 Ml Oral.Susp) 30 ml PO Q6H PRN PRN Reason: Heartburn/Nausea Last Admin: 09/21/21 20:57 Dose: 30 ml Albuterol Sulfate (Albuterol Sulfate 90 Mcg 8 Gm Inhaler) 2 puff INHALE Q6H PRN PRN Reason: Wheezing Atorvastatin Calcium (Atorvastatin Calcium 20 Mg Tablet) 20 mg PO BEDTIME [facility] Last Admin: 09/25/21 20:37 Dose: 20 mg Levothyroxine Sodium (Levothyroxine Sodium 50 Mcg Tablet) 50 mcg PO DAILY@0600 [facility] Last Admin: 09/26/21 06:33 Dose: 50 mcg Lorazepam (Lorazepam 0.5 Mg Tablet) 0.25 mg PO BID [facility] Last Admin: 09/26/21 10:14 Dose: 0.25 mg Losartan Potassium (Losartan Potassium 25 Mg Tablet) 25 mg PO DAILY [facility]; Protocol Last Admin: 09/26/21 08:12 Dose: 25 mg Magnesium Hydroxide (Milk Of Magnesia 30 Ml Oral.Susp) 30 ml PO DAILY PRN PRN Reason: Constipation Mirtazapine (Mirtazapine 7.5 Mg Tablet) 7.5 mg PO BEDTIME [facility] Last Admin: 09/25/21 20:37 Dose: 7.5 mg Omeprazole (Omeprazole 20 Mg Capsule.Dr) 20 mg PO BID@0630,1630 [facility] Last Admin: 09/26/21 16:36 Dose: 20 mg Polyethylene Glycol (Polyethylene Glycol 3350 17 Gm Powd.Pack) 17 gm PO DAILY [facility] Last Admin: 09/26/21 08:12 Dose: 17 gm Sertraline HCl (Sertraline Hcl 50 Mg Tablet) 50 mg PO DAILY [facility] Last Admin: 09/26/21 08:12 Dose: 50 mg Trazodone HCl (Trazodone Hcl 50 Mg Tablet) 50 mg PO BEDTIME PRN PRN Reason: Insomnia Allergies Allergies Allergy/AdvReac Type Severity Reaction Status Date / Time amoxicillin Allergy Unknown Rash Verified 09/19/21 22:18 naproxen Allergy Unknown Rash Verified 09/19/21 22:18 Assessment & Plan Assessment & Plan (1) MDD (major depressive disorder), recurrent episode, severe: Status: Acute Code(s): F33.2 - Major depressive disorder, recurrent severe without psychotic features Plan Elderly female with a history of major depressive disorder admitted for exacerbation of symptoms in the context of several psychosocial stressors. On admission, she verbalized suicidal ideation. At this moment she is safe and she is able to contract for safety. Plan 1. Continue Remeron 7.5. 2. Keep saw loved on 50 mg p.o. daily. 3. Reassessment with results. 09/26/2021: No changes to current treatment plan I spent minutes with the patient and/or on the patient floor today, greater than?50% of which was spent counseling/coordinating care. Reason for contiued inpatient stay Substantial Risk for: harm to self
[2021-09-26 18:00] VITALS: BP 131/77; PULSE 63; RESP 17; TEMP 36; O2SAT 97
[2021-09-26] MEDS: Atorvastatin Calcium 20 MG TABLET PO (20:27)
[2021-09-26] MEDS: Mirtazapine 7.5 MG TABLET PO (20:29)
[2021-09-27] MEDS: Omeprazole 20 MG CAPSULE.DR PO ×2 (06:28→16:31)
[2021-09-27] MEDS: Levothyroxine Sodium 50 MCG TABLET PO (06:28)
[2021-09-27 07:30] VITALS: BP 162/74; PULSE 60; RESP 14; TEMP 36; O2SAT 99
[2021-09-27] MEDS: Sertraline HCL 50 MG TABLET PO (08:18)
[2021-09-27] MEDS: Losartan Potassium 25 MG TABLET PO (08:18)
[2021-09-27] MEDS: LORazepam 0.5 MG TABLET 0.25 MG PO ×2 (08:19→21:19)
[2021-09-27] MEDS: Acetaminophen 325 MG TABLET 650 MG PO (09:49)
--- NOTE | 2021-09-27 11:10 | P.PNPSI_ITS ---
Subjective Subjective Date of Service: 09/27/21 Reason For Visit: depression Interim History: Patient seen and discussed with team. Patient evaluated today and upon interview she reports her depression worsened because I didnt want to be alone anymore, this worsened over the pandemic. S ays she wants to get comfortable being alone again. Says she is able to sleep. Medications are okay. Complains of epigastric pain after eating, says she was supposed to have an OP appointment to check for gallstones. In the milieu, patient is safe and appropriate in behavior. Denies SI/SIB/HI upon inquiry. Attending groups. Says she feels safe. Medication Compliance: Yes Side effects from medications: No Attending Groups: No Review of Systems Acute medical concerns: No Medical Review of Systems: unchanged Mental Status Exam Mental Status Exam Narrative: Patient Appearance: Well Grooomed Patient Orientation: Person and Situation Level of Consciousness: Alert Patient Behavior: Cooperative Mood Description: Constricted Affect Description: Constricted Patient Cognition Impaired: No Ability to Follow Directions: Good Speech Pattern: Clear Hallucinations: None Delusions: Not Present Thought Process: Linear Thought Content: positive for Circumstantial Judgment: Fair Diagnostics Vital Signs (24Hr): Vital Signs - 24 hr 09/26/21 18:00 09/27/21 07:30 Temperature 96.8 F 96.8 F Pulse Rate 63 60 Respiratory Rate 17 14 Blood Pressure 131/77 162/74 H Pulse Oximetry 97 99 Oxygen Delivery Method Room Air Room Air BMI result Body Mass Index 19.3 Labs Results: 09/20/21 15:18 09/20/21 07:14 Medications Medications Current Medications Acetaminophen (Acetaminophen 325 Mg Tablet) 650 mg PO Q6H PRN PRN Reason: Headache/Pain Mild Scale (1-3) Last Admin: 09/27/21 09:49 Dose: 650 mg Al Hydroxide/Mg Hydroxide (Magnesium Hydrox/Alum Hydrox 30 Ml Oral.Susp) 30 ml PO Q6H PRN PRN Reason: Heartburn/Nausea Last Admin: 09/21/21 20:57 Dose: 30 ml Albuterol Sulfate (Albuterol Sulfate 90 Mcg 8 Gm Inhaler) 2 puff INHALE Q6H PRN PRN Reason: Wheezing Atorvastatin Calcium (Atorvastatin Calcium 20 Mg Tablet) 20 mg PO BEDTIME [facility] Last Admin: 09/26/21 20:27 Dose: 20 mg Levothyroxine Sodium (Levothyroxine Sodium 50 Mcg Tablet) 50 mcg PO DAILY@0600 [facility] Last Admin: 09/27/21 06:28 Dose: 50 mcg Lorazepam (Lorazepam 0.5 Mg Tablet) 0.25 mg PO BID [facility] Last Admin: 09/27/21 08:19 Dose: 0.25 mg Losartan Potassium (Losartan Potassium 25 Mg Tablet) 25 mg PO DAILY [facility]; Protocol Last Admin: 09/27/21 08:18 Dose: 25 mg Magnesium Hydroxide (Milk Of Magnesia 30 Ml Oral.Susp) 30 ml PO DAILY PRN PRN Reason: Constipation Mirtazapine (Mirtazapine 7.5 Mg Tablet) 7.5 mg PO BEDTIME [facility] Last Admin: 09/26/21 20:29 Dose: 7.5 mg Omeprazole (Omeprazole 20 Mg Capsule.Dr) 20 mg PO BID@0630,1630 [facility] Last Admin: 09/27/21 06:28 Dose: 20 mg Polyethylene Glycol (Polyethylene Glycol 3350 17 Gm Powd.Pack) 17 gm PO DAILY [facility] Last Admin: 09/27/21 08:21 Dose: Not Given Sertraline HCl (Sertraline Hcl 50 Mg Tablet) 50 mg PO DAILY [facility] Last Admin: 09/27/21 08:18 Dose: 50 mg Trazodone HCl (Trazodone Hcl 50 Mg Tablet) 50 mg PO BEDTIME PRN PRN Reason: Insomnia Allergies Allergies Allergy/AdvReac Type Severity Reaction Status Date / Time amoxicillin Allergy Unknown Rash Verified 09/19/21 22:18 naproxen Allergy Unknown Rash Verified 09/19/21 22:18 Assessment & Plan Assessment & Plan (1) MDD (major depressive disorder), recurrent episode, severe: Status: Acute Code(s): F33.2 - Major depressive disorder, recurrent severe without psychotic features Plan Elderly female with a history of major depressive disorder admitted for exacerbation of symptoms in the context of several psychosocial stressors. On admission, she verbalized suicidal ideation. At this moment she is safe and she is able to contract for safety. Plan 1. Continue Remeron 7.5. 2. Keep saw loved on 50 mg p.o. daily. 3. Reassessment with results. 09/26/2021: No changes to current treatment plan 09/27/2021: Pt does not want med changes I spent minutes with the patient and/or on the patient floor today, greater than?50% of which was spent counseling/coordinating care. Patient educated on: medication risk/benefits and therapeutic strategies Reason for contiued inpatient stay Substantial Risk for: med/psych decompensation
[2021-09-27 18:00] VITALS: BP 120/67; PULSE 59; RESP 18; TEMP 36.6; O2SAT 97
[2021-09-27] MEDS: Mirtazapine 7.5 MG TABLET PO (21:14)
[2021-09-27] MEDS: Atorvastatin Calcium 20 MG TABLET PO (21:14)
[2021-09-28 06:00] VITALS: BP 174/82; PULSE 61; RESP 16; TEMP 36.3; O2SAT 98
[2021-09-28] MEDS: Omeprazole 20 MG CAPSULE.DR PO ×2 (06:17→16:34)
[2021-09-28] MEDS: Levothyroxine Sodium 50 MCG TABLET PO (06:17)
[2021-09-28] MEDS: Losartan Potassium 25 MG TABLET PO (08:39)
[2021-09-28] MEDS: Sertraline HCL 50 MG TABLET PO (08:39)
[2021-09-28] MEDS: LORazepam 0.5 MG TABLET 0.25 MG PO ×2 (08:40→20:41)
[2021-09-28] MEDS: polyethylene glycoL 3350 17 GM POWD.PACK PO (08:41)
--- NOTE | 2021-09-28 16:33 | HO.PSYCHPN ---
Subjective Subjective Date of Service: 09/28/21 Reason For Visit: depression Subjective Notes: Conditional Voluntary Interim History: The nursing staff reported the patient has been compliant with treatment, she was able to participate in groups and she denies active suicidal ideation. On interview the patient denies new symptoms she reports some pains and aches and abdominal discomfort after eating. Mental Status Exam Mental Status Exam Patient Appearance: Well Grooomed Patient Orientation: Person, Place and Situation Level of Consciousness: Awake Patient Behavior: Appropriate and Cooperative Mood Description: Withdrawn Affect Description: Constricted Patient Cognition Impaired: No Ability to Follow Directions: Good Speech Pattern: Clear Hallucinations: None Delusions: Not Present Thought Process: Linear Thought Content: positive for [place] and positive for Poverty of Content Judgement: Fair Diagnostics Vital Signs (24Hr): Vital Signs - 24 hr 09/27/21 18:00 09/28/21 06:00 Temperature 97.8 F 97.3 F Pulse Rate 59 61 Respiratory Rate 18 16 Blood Pressure 120/67 174/82 H Pulse Oximetry 97 98 Oxygen Delivery Method Room Air Room Air BMI result Body Mass Index 19.3 Labs Results: 09/20/21 15:18 09/20/21 07:14 Medications Medications Current Medications Acetaminophen (Acetaminophen 325 Mg Tablet) 650 mg PO Q6H PRN PRN Reason: Headache/Pain Mild Scale (1-3) Last Admin: 09/27/21 09:49 Dose: 650 mg Al Hydroxide/Mg Hydroxide (Magnesium Hydrox/Alum Hydrox 30 Ml Oral.Susp) 30 ml PO Q6H PRN PRN Reason: Heartburn/Nausea Last Admin: 09/21/21 20:57 Dose: 30 ml Albuterol Sulfate (Albuterol Sulfate 90 Mcg 8 Gm Inhaler) 2 puff INHALE Q6H PRN PRN Reason: Wheezing Atorvastatin Calcium (Atorvastatin Calcium 20 Mg Tablet) 20 mg PO BEDTIME [facility] Last Admin: 09/27/21 21:14 Dose: 20 mg Levothyroxine Sodium (Levothyroxine Sodium 50 Mcg Tablet) 50 mcg PO DAILY@0600 [facility] Last Admin: 09/28/21 06:17 Dose: 50 mcg Lorazepam (Lorazepam 0.5 Mg Tablet) 0.25 mg PO BID [facility] Last Admin: 09/28/21 08:40 Dose: 0.25 mg Losartan Potassium (Losartan Potassium 25 Mg Tablet) 25 mg PO DAILY [facility]; Protocol Last Admin: 09/28/21 08:39 Dose: 25 mg Magnesium Hydroxide (Milk Of Magnesia 30 Ml Oral.Susp) 30 ml PO DAILY PRN PRN Reason: Constipation Mirtazapine (Mirtazapine 7.5 Mg Tablet) 7.5 mg PO BEDTIME [facility] Last Admin: 09/27/21 21:14 Dose: 7.5 mg Omeprazole (Omeprazole 20 Mg Capsule.Dr) 20 mg PO BID@0630,1630 [facility] Last Admin: 09/28/21 06:17 Dose: 20 mg Polyethylene Glycol (Polyethylene Glycol 3350 17 Gm Powd.Pack) 17 gm PO DAILY [facility] Last Admin: 09/28/21 08:41 Dose: 17 gm Sertraline HCl (Sertraline Hcl 50 Mg Tablet) 50 mg PO DAILY [facility] Last Admin: 09/28/21 08:39 Dose: 50 mg Trazodone HCl (Trazodone Hcl 50 Mg Tablet) 50 mg PO BEDTIME PRN PRN Reason: Insomnia Allergies Allergies Allergy/AdvReac Type Severity Reaction Status Date / Time amoxicillin Allergy Unknown Rash Verified 09/19/21 22:18 naproxen Allergy Unknown Rash Verified 09/19/21 22:18 Assessment & Plan Assessment & Plan (1) MDD (major depressive disorder), recurrent episode, severe: Status: Acute Code(s): F33.2 - Major depressive disorder, recurrent severe without psychotic features Plan Elderly female with a history of major depressive disorder admitted for exacerbation of symptoms in the context of several psychosocial stressors. On admission, she verbalized suicidal ideation. At this moment she is safe and she is able to contract for safety. Plan 1. Continue Remeron 7.5. 2. Keep saw loved on 50 mg p.o. daily. 3. Reassessment with results. I spent ___20___ minutes with the patient and/or on the patient floor today, greater than?50% of which was spent counseling/coordinating care. Reason for contiued inpatient stay Substantial Risk for: inability to function, rapid decompensation and med/psych decompensation
[2021-09-28 18:00] VITALS: BP 131/73; PULSE 70; RESP 16; TEMP 36.9; O2SAT 97
[2021-09-28] MEDS: Atorvastatin Calcium 20 MG TABLET PO (20:42)
[2021-09-28] MEDS: Mirtazapine 7.5 MG TABLET PO (20:42)
[2021-09-29] MEDS: Omeprazole 20 MG CAPSULE.DR PO (06:35)
[2021-09-29] MEDS: Levothyroxine Sodium 50 MCG TABLET PO (06:35)
[2021-09-29] MEDS: Losartan Potassium 25 MG TABLET PO (08:11)
[2021-09-29] MEDS: Sertraline HCL 50 MG TABLET PO (08:11)
[2021-09-29] MEDS: polyethylene glycoL 3350 17 GM POWD.PACK PO (08:12)
[2021-09-29] MEDS: LORazepam 0.5 MG TABLET 0.25 MG PO (08:13)
[2021-09-29 08:21] VITALS: BP 138/69; PULSE 56; RESP 17; TEMP 36.4; O2SAT 96
--- NOTE | 2021-09-29 12:48 | P.DS_ITS ---
DS: Providers Provider Date of Service: 09/29/21 Date of admission: 09/19/21 21:22 Date of discharge: 09/29/21 Primary care physician: Unknown Physician Consults: 09/19/21 22:44 Consult to Hospitalist Routine Consulting Provider: Hospitalist Reason For Exam: Benita psych admission H&P Attending physician on discharge: Brenton Smart DS: Diagnosis Discharge Diagnosis (1) MDD (major depressive disorder), recurrent episode, severe: Status: Acute DS: Medications Discharge Medications Home Medications: Home Medications Medication Instructions Recorded Confirmed albuterol sulfate 90 mcg/actuation 2 puff inhalation Q6H PRN Wheezing 09/19/21 09/19/21 aerosol inhaler buspirone 5 mg tablet 5 mg PO TID 09/19/21 09/19/21 estradiol 1 g vaginal 3XW 09/19/21 09/19/21 levothyroxine 50 mcg tablet 50 mcg PO DAILY 09/19/21 09/19/21 losartan 25 mg tablet 25 mg PO DAILY 09/19/21 09/19/21 metformin 500 mg tablet 500 mg PO BID 09/19/21 09/19/21 pantoprazole 40 mg tablet,delayed 40 mg PO BID 09/19/21 09/19/21 release polyethylene glycol 3350 17 gram 17 g PO DAILY 09/19/21 09/19/21 oral powder packet sertraline 100 mg tablet 100 mg PO DAILY 09/19/21 09/19/21 simvastatin 20 mg tablet 20 mg PO BEDTIME 09/19/21 09/19/21 Mental Status Exam Mental Status Exam Patient Appearance: Well Grooomed Patient Orientation: Person, Place and Situation Level of Consciousness: Awake Patient Behavior: Cooperative Mood Description: Appropriate Affect Description: Constricted Patient Cognition Impaired: No Ability to Follow Directions: Good Speech Pattern: Clear Hallucinations: None Delusions: Not Present Thought Process: Linear Thought Content: positive for Circumstantial Judgement: Fair Data Data Completed and Pending Completed studies during hospitalization [Text1]: 09/21/21 21:38 Urine clean catch - Urine mclean top Urine Culture - Final DS: Summary Hospital Course Hospital Course: the patient was admitted for exacerbation of depression with suicidal ideation in the context of several psychosocial stressors. Please see HPI for further details of the admission note. On admission, review her list of medications and she was on so loved that he was slightly going down to cross taper with a different antidepressant. Since the patient had been on Zoloft and is [place] for more than 30 years, we discussed with the patient options and she wanted to keep it on Zoloft 50 mg daily and start a low dose of mirtazapine sings 1 of her complains was chronic insomnia. We tried Remeron 15 mg p.o. q.h.s. and she was over-sedated. He took a couple of days to clear her up at a lower dose of 7.5 mg p.o. q.h.s.. The patient was seen in the common areas, participating in groups and future oriented. She adamantly denies suicidal or homicidal ideation or any safety concerns. Since there were no safety concerns discharge planning was discussed. We held a family meeting and other coordinated efforts for proper and safe discharge. Time spent discussing smoking cessation with patient: 3 to 10 minutes Status at Discharge Functional status at discharge: independent ambulation Overall status at discharge: patient is back to baseline Time Spent with Patient Time attestation: Total time spent providing and/or coordinating discharge services: Time spent: Less than 30 minutes Discharge Plan Discharge Patient Disposition: Home, Self-Care Discharge Diagnosis: major depressive disorder recurrent episode severe without psychosis Referrals: Lorraine Melissa. [facility] [place] [facility] [Other] - 1 Week (Lorraine Melissa will contact you and schedule virtual therapy appointment. There is a 2 week waitlist at this time. ) Kenyatta Perry, [facility]iatric [facility] [Other] - 10/08/21 2:00 pm (You first appointment with Kenyatta for psyhiiatry follow up is for 10/08/21 at 2PM.) Physician,Unknown J [Primary Care Provider] - 10/07/21 2:00 pm (Dr Timmy Whitman 10/07/21 2pm [address] [place] [address] ) Discharge Medications: New lorazepam 0.5 mg Tablet 0.25 mg PO BID 30 Days Qty: 30 0RF sertraline 50 mg Tablet 50 mg PO DAILY 30 Days Qty: 30 0RF mirtazapine 7.5 mg Tablet 7.5 mg PO BEDTIME 30 Days Qty: 30 0RF Continued polyethylene glycol 3350 17 gram Powder In Packet 17 g PO DAILY 30 Days Qty: 30 0RF levothyroxine 50 mcg Tablet 50 mcg PO DAILY 30 Days Qty: 30 0RF pantoprazole 40 mg Tablet,Delayed Release (Dr/Ec) 40 mg PO BID 30 Days Qty: 60 0RF simvastatin 20 mg Tablet 20 mg PO BEDTIME 30 Days Qty: 30 0RF losartan 25 mg Tablet 25 mg PO DAILY 30 Days Qty: 30 0RF estradiol 0.01 % (0.1 mg/gram) Cream 1 g VAGINAL 3XW 30 Days Qty: 1 0RF albuterol sulfate 90 mcg/actuation Hfa Aerosol Inhaler 2 puff INHALATION Q6H PRN (Reason: Wheezing) 30 Days Qty: 1 0RF Discontinued buspirone 5 mg Tablet 5 mg PO TID metformin 500 mg Tablet 500 mg PO BID sertraline 100 mg Tablet 100 mg PO DAILY Discharge Orders: Discharge Order (Routine); Ordered 09/29/21 Ordered By: Brenton Smart Diet: advance to usual diet Activity on Discharge: As tolerated Stand Alone Forms: Patient Portal Discharge page, Community Support Care Plan Goals: care plan goals achieved in this admission Health Concerns: continue treatment with outpatient providers Plan of Treatment: continue treatment with outpatient providers Assessment: elderly female with a long history of major depressive disorder admitted for suicidal ideation in the context of several psychosocial stressors. At this moment safe with the increase of a 2nd antidepressant to target dysphoria. No safety concerns ready for discharge
== END 2021-09-29 13:57 | disposition home or self-care (01) | DRG 885 ==
PROVIDERS: Family Medicine; Psychiatry & Neurology Psychiatry; Social Worker; Admitting Provider Psychiatry & Neurology Psychiatry; Visit Provider Psychiatry & Neurology Psychiatry
DX: F33.2 Major depressive disorder, recurrent severe without psychotic features (principal); R45.851 Suicidal ideations; E87.2 Acidosis; J44.9 Chronic obstructive pulmonary disease, unspecified; F41.1 Generalized anxiety disorder; E03.9 Hypothyroidism, unspecified; Z90.2 Acquired absence of lung [part of]; N18.30 Chronic kidney disease, stage 3 unspecified; E11.22 Type 2 diabetes mellitus with diabetic chronic kidney disease; R13.10 Dysphagia, unspecified; I25.10 Atherosclerotic heart disease of native coronary artery without angina pectoris; E78.5 Hyperlipidemia, unspecified; Z95.5 Presence of coronary angioplasty implant and graft; Z85.3 Personal history of malignant neoplasm of breast; Z85.118 Personal history of other malignant neoplasm of bronchus and lung; Z88.0 Allergy status to penicillin; Z88.6 Allergy status to analgesic agent; Z79.890 Hormone replacement therapy; Z79.899 Other long term (current) drug therapy
CPT/HCPCS: 36415; 80053; 80061; 81001; 82607; 82746; 82947; 83036; 83605; 84439; 84443; 85025; 87086; 92526; 92610